=== PATIENT | female | born 1960 | race African-American/Black ===

== ENCOUNTER 2017-05-25 16:52 | Emergency (ER) | payer OTHER ==
[~2017-05-25] VITALS: Ht 157.5 cm; Wt 110.0 kg
[2017-05-25] MEDS ORDERED: KETOROLAC 30MG/ML VIAL IM ONE (21:00)
[2017-05-25 21:01] VITALS: BP 140/90
== END 2017-05-25 22:22 | disposition home or self-care (01) ==
LOC: ER 17:26
DX: S50.02XA Contusion of left elbow, initial encounter (principal); V43.62XA Car passenger injured in collision with other type car in traffic accident, initial encounter; Z88.5 Allergy status to narcotic agent; Y93.89 Activity, other specified; Y92.481 Parking lot as the place of occurrence of the external cause
CPT/HCPCS: 73080; 73090; 96372; 99284; J1885; A4565